=== PATIENT | female | born 1945 | race Caucasian/White ===

== ENCOUNTER 2018-12-30 11:09 | Observation (INO) | payer MEDICARE, BC ==
[~2018-12-30] VITALS: Ht 167.6 cm; Wt 61.4 kg
[2018-12-30 11:50] LABS: BASOPHILS # (AUTO) 0.04 x10^3/uL (0-0.1); BASOPHILS % (AUTO) 1 % (0-1); EOSINOPHILS # (AUTO) 0.01 x10^3/uL (0-0.4); EOSINOPHILS % (AUTO) 0 % (1-7); LYMPHOCYTES # (AUTO) 2.25 x10^3/uL (1-3.4); LYMPHOCYTES % (AUTO) 33 % (22-44); MD NO; MEAN CORPUSCULAR HEMOGLOBIN 27.3 pg (27.0-34.8); MEAN CORPUSCULAR HGB CONC 32.5 g/dL (32.4-35.8); MEAN PLATELET VOLUME 7.7 fL (7.4-10.4); MONOCYTES # (AUTO) 0.52 x10^3/uL (0.2-0.8); MONOCYTES % (AUTO) 8 % (2-9); NEUTROPHILS # (AUTO) 4.04 x10^3/uL (1.8-6.8); NEUTROPHILS % (AUTO) 59 % (42-75); PLATELET COUNT 265 x10^3/uL (130-400); RED BLOOD COUNT 5.12 x10^6/uL (3.82-5.3); RED CELL DISTRIBUTION WIDTH 17.3 % (9.6-15.2)
[2018-12-30 12:05] LABS: ALBUMIN 3.9 g/dL (3.4-5.0); ANION GAP 6 mmol/L (5-15); CALCIUM 9.3 mg/dL (8.5-10.1); CHLORIDE 109 mmol/L (98-107); CREATININE 1.08 mg/dL (0.55-1.02)
[2018-12-30 12:08] LABS: TROPONIN I < 0.015 ng/mL (0.000-0.045)
--- NOTE | 2018-12-30 14:03 | NUR ---
PT SITTING UP IN [facility], NAD NOTED. PWD; SPEAKING W/ EASE TO ERP. PT REPORTS INTERMITTENT CP/LIGHT HEADEDNESS X 'A FEW WEEKS'. EPISODES LASTING APPROX ONE HOUR. +FATIGUE W/ EPISODES. PT REPORTS BEING EVALUATED FOR AFIB, WO OFFICIAL DX. NO OTHER CARDIAC OR PULM HX. PT DENIES N/V/SOB/DIAPHORESIS/LE EDEMA OR PAIN. BP/SPO2/ECG MONITORING IN PLACE. NSR ON MONITOR, RATE 60'S. SPO2 >90% ON RA. DAUGHTER AT BEDSIDE. ERP AT BEDSIDE FOR INITIAL ASSESSMENT. IV ESTABSLISHED.
--- NOTE | 2018-12-30 14:18 | NUR ---
PT MEDICATED PER EMAR W/ ASA. PT UPDATED TO POC FOR ADMIT AND DEMONSTRATES UNDERSTANDING.
[2018-12-30] MEDS ORDERED: ASPIRIN 81 MG TABLET EC ONE (14:19)
[2018-12-30] MEDS ORDERED: CITA20TA9 PO (14:29)
[2018-12-30] MEDS ORDERED: IBUP200T49 PO (14:29)
[2018-12-30] MEDS ORDERED: ASPIRIN 81 MG TABLET CHEW PO ONE (14:30)
[2018-12-30] MEDS ORDERED: SODIUM CHLORIDE 0.9% 1,000 ML IV SCH (14:52)
[2018-12-30] MEDS ORDERED: NITROGLYCERIN 0.4 MG BOTTLE (25 TABS) SL PRN (15:00)
[2018-12-30] MEDS ORDERED: ACETAMINOPHEN 325 MG TABLET PO PRN (15:00)
[2018-12-30] MEDS ORDERED: ONDANSETRON 2MG/ML, 2ML IVPush PRN (15:00)
[2018-12-30] MEDS ORDERED: LABETALOL 5MG/ML, 20ML IVPush PRN (15:00)
[2018-12-30] MEDS ORDERED: morphine SULFATE 10 MG/ML, 1ML IVPush PRN (15:00)
[2018-12-30] MEDS ORDERED: SODIUM CHLORIDE FLUSH 10ML SYR IVF PRN (15:00)
[2018-12-30] MEDS ORDERED: HEPARIN 5,000 UNITS/ML, 1ML ONE (15:32)
[2018-12-30 15:37] LABS: TROPONIN I < 0.015 ng/mL (0.000-0.045)
[2018-12-30] MEDS: HEPARIN 5,000 UNITS/ML, 1ML SQ SCH ×2 (15:38→20:55)
--- NOTE | 2018-12-30 15:40 | NUR ---
PT MEDICATED PER EMAR. PT DENIES CP AT THIS TIME. NSR ON MONITOR. DAUGHTER AT BEDSIDE.
[2018-12-30 15:48] LABS: INTERNATIONAL NORMALIZED RATIO 1.24 (0.93-1.1); PROTHROMBIN TIME 12.9 Seconds (9.6-11.5)
--- NOTE | 2018-12-30 16:11 | NUR ---
PT SITTING UP IN [facility] NOTED. TIFFANIE SR ON MONITOR, 58. DENIES CP/SOB/DIZZINESS AT THIS TIME. MEAL TRAY PROVIDED. DAUGHTER AT BEDSIDE
--- NOTE | 2018-12-30 16:40 | NUR ---
REPORT TO F[facility]NA[facility] ON FLOOR. PT AWARE AND PREPARED FOR TRANSPORT
[2018-12-30 17:07] VITALS: BP 129/75
[2018-12-30 18:37] VITALS: BP 121/74
[2018-12-30] MEDS ORDERED: ATORVASTATIN 80 MG TABLET PO SCH (21:00)
[2018-12-30 22:09] LABS: TROPONIN I < 0.015 ng/mL (0.000-0.045)
[2018-12-31 01:27] VITALS: BP 116/67
[2018-12-31 05:13] LABS: BASOPHILS # (AUTO) 0.03 x10^3/uL (0-0.1); BASOPHILS % (AUTO) 1 % (0-1); EOSINOPHILS # (AUTO) 0.05 x10^3/uL (0-0.4); EOSINOPHILS % (AUTO) 1 % (1-7); LYMPHOCYTES # (AUTO) 2.29 x10^3/uL (1-3.4); LYMPHOCYTES % (AUTO) 37 % (22-44); MD NO; MEAN CORPUSCULAR HEMOGLOBIN 27.8 pg (27.0-34.8); MEAN CORPUSCULAR VOLUME 84.2 fL (80-100); MEAN PLATELET VOLUME 7.7 fL (7.4-10.4); MONOCYTES # (AUTO) 0.61 x10^3/uL (0.2-0.8); MONOCYTES % (AUTO) 10 % (2-9); NEUTROPHILS # (AUTO) 3.16 x10^3/uL (1.8-6.8); NEUTROPHILS % (AUTO) 51 % (42-75); PLATELET COUNT 223 x10^3/uL (130-400); RED BLOOD COUNT 4.46 x10^6/uL (3.82-5.3); RED CELL DISTRIBUTION WIDTH 17.2 % (9.6-15.2)
[2018-12-31 05:30] LABS: ALBUMIN 3.2 g/dL (3.4-5.0); ANION GAP 5 mmol/L (5-15); CALCIUM 8.4 mg/dL (8.5-10.1); CHLORIDE 112 mmol/L (98-107)
[2018-12-31 05:37] LABS: ALANINE AMINOTRANSFERASE 263 U/L (12-78); ALKALINE PHOSPHATASE 126 U/L (45-117); BILIRUBIN,TOTAL 1.8 mg/dL (0.2-1.0); CHOL/HDL RATIO 2.7; CHOLESTEROL, TOTAL 169 mg/dL (140-239); CREATININE 0.87 mg/dL (0.55-1.02); HDL CHOL % 37 % (28-40); HDL CHOLESTEROL (DIRECT) 62 mg/dL (40-60); LDL CHOLESTEROL,CALCULATED 96 mg/dL (54-169); LDL/HDL RATIO 1.5 (0.5-3.0); TOTAL PROTEIN 5.9 g/dL (6.4-8.2); TRIGLYCERIDES 54 mg/dL (50-200); VLDL CHOLESTEROL 11 mg/dL (0-25)
[2018-12-31] MEDS: HEPARIN 5,000 UNITS/ML, 1ML SQ SCH (06:13)
[2018-12-31] MEDS ORDERED: ASPIRIN 81 MG TABLET CHEW PO ONE (09:00)
[2018-12-31 10:07] VITALS: BP 117/72
[2018-12-31] MEDS ORDERED: REGADENOSON 0.4 MG/5 ML SYRINGE ONE (11:22)
[2018-12-31 13:42] VITALS: BP 117/75
[2018-12-31] MEDS ORDERED: NITR0.4T SL (15:46)
[2018-12-31] MEDS ORDERED: ASPI-515 PO (15:46)
== END 2018-12-31 16:40 | disposition home or self-care (01) ==
LOC: ED 14:33 → EDIP 14:34 → INTOOBSV 14:34 → ED 14:56 → 5SO 17:05 → DCLOUNGE 12-31 16:27
PROVIDERS: ADMIT Internal Medicine; ATTEND Internal Medicine
DX: R07.89 Other chest pain (principal); E78.5 Hyperlipidemia, unspecified; H81.09 Meniere's disease, unspecified ear; N17.9 Acute kidney failure, unspecified; Z82.49 Family history of ischemic heart disease and other diseases of the circulatory system; Z85.3 Personal history of malignant neoplasm of breast; Z90.13 Acquired absence of bilateral breasts and nipples; Z90.710 Acquired absence of both cervix and uterus
CPT/HCPCS: 36415; 71045; 76705; 78452; 80048; 80053; 80061; 82040; 83735; 84443; 84484; 85025; 85379; 85610; 85730; 93005; 93017; 96372; 99284; A9502; C9898; G0378; J1644; J2785; J7030